=== PATIENT | male | born 1995 | race Two or more races ===

== ENCOUNTER 2016-11-01 16:18 | Emergency (ER) | payer SELFPAY ==
[~2016-11-01] VITALS: Ht 172.7 cm; Wt 81.6 kg
[2016-11-01 16:18] VITALS: BP 129/68
== END 2016-11-01 17:45 | disposition home or self-care (01) ==
LOC: ER 16:23
DX: H60.91 Unspecified otitis externa, right ear (principal); J02.8 Acute pharyngitis due to other specified organisms; J06.9 Acute upper respiratory infection, unspecified
CPT/HCPCS: A4606; Z7610

== ENCOUNTER 2017-10-12 18:24 | Emergency (ER) | payer MEDICAID ==
[~2017-10-12] VITALS: Ht 172.7 cm; Wt 90.7 kg
--- NOTE | 2017-10-12 19:19 | NUR ---
N/V/D X2 WKS, MIDABD PAIN, TOOK TYLENOL 2 TAB X5 HRS [employer] RECENT TRAVEL TO [facility] X3 DAYS AGO
--- NOTE | 2017-10-12 20:54 | NUR ---
STOOL SAMPLE COLLECTED
[2017-10-12] MEDS ORDERED: IV NS 0.9% 1,000 ML BAG IV ONE (21:00)
[2017-10-12] MEDS ORDERED: ONDANSETRON HCL/PF 4 MG/2 ML VIAL IVP ONE (21:00)
[2017-10-12] MEDS ORDERED: MORPHINE SULFATE INJ 2 MG/ML DISP.SYRIN IV ONE (21:00)
--- NOTE | 2017-10-12 21:05 | NUR ---
RAC #[id number] IV ACCESS. BLOOD SAMPLE COLLECTED SENT TO LAB
[2017-10-12] MEDS ORDERED: IOHEXOL-300 100 ML VIAL IV ONE (21:13)
[2017-10-12] MEDS ORDERED: IV NS 0.9% 250 ML IV ONE (21:13)
[2017-10-12 21:14] LABS: BASOPHILS % (AUTO) 0.3 % (0.0-2.0); EOSINOPHILS # (AUTO) 0.1 /CMM (0.0-0.7); EOSINOPHILS % (AUTO) 0.6 % (0.0-6.0); HEMATOCRIT 45 % (39-51); HEMOGLOBIN 15.4 g/dL (13.5-17.5); LYMPHOCYTES # (AUTO) 1.7 /CMM (0.8-4.8); LYMPHOCYTES % (AUTO) 16.8 % (20.0-44.0); MEAN CORPUSCULAR HEMOGLOBIN 25 PG (26.0-33.0); MEAN CORPUSCULAR HGB CONC 34 g/dl (31.0-36.0); MEAN CORPUSCULAR VOLUME 73 fL (80-96); MONOCYTES # (AUTO) 1.4 /CMM (0.1-1.30); MONOCYTES % (AUTO) 13.8 % (2.0-12.0); NEUTROPHILS # (AUTO) 6.8 /CMM (1.8-8.9); NEUTROPHILS % (AUTO) 68.5 % (43.0-81.0); PLATELET COUNT (AUTO) 441 /CMM (150-450); RDW COEFFICIENT OF VARIATION 14.6 (11.5-15.0); RED BLOOD CELL COUNT(AUTO) 6.24 MIL/uL (4.5-6.0)
[2017-10-12] MEDS ORDERED: ONDANSETRON HCL/PF 4 MG/2 ML VIAL ONE (21:18)
[2017-10-12] MEDS ORDERED: MORPHINE SULFATE INJ 4 MG/ML DISP.SYRIN ONE (21:19)
[2017-10-12 21:25] LABS: CALCIUM, SERUM 9.7 mg/dL (8.5-10.1); CREATININE 1.3 mg/dL (0.6-1.3); POTASSIUM 3.7 mmol/L (3.5-5.1)
[2017-10-12 21:27] LABS: INR 1.03 (0.87-1.13); PROTHROMBIN TIME 10.7 SECS (9.5-12.7)
[2017-10-12 21:36] LABS: ALBUMIN 4.5 g/dL (3.4-5.0); BILIRUBIN,DIRECT 0.1 mg/dL (0.0-0.2); BILIRUBIN,TOTAL 0.4 mg/dL (0.2-1.0)
[2017-10-12 22:15] LABS: NEUTROPHILS % (MANUAL) 70 (42-76)
[2017-10-12 22:16] LABS: LYMPHOCYTES % (MANUAL) 14 % (16-48); MONOCYTES % (MANUAL) 16 % (0-11.0)
[2017-10-12 22:46] VITALS: BP 123/80
--- NOTE | 2017-10-12 22:46 | NUR ---
Patient discharged to home in stable condition. Written and verbal after care instructions given. Patient verbalizes understanding of instruction.
--- NOTE | 2017-10-12 22:46 | NUR ---
IV removed. Catheter intact and site benign. Pressure and 4x4 applied to site. No bleeding noted.
== END 2017-10-12 22:48 | disposition home or self-care (01) ==
LOC: ER 18:39
DX: R19.7 Diarrhea, unspecified (principal); R10.84 Generalized abdominal pain; R11.2 Nausea with vomiting, unspecified
CPT/HCPCS: 36415; 80048-TC; 80076-TC; 83690-TC; 85025-TC; 85730-TC; 87045-TC; 89055; A4606; J2270; J2405; J7030; J7050; Q9967; Z7610

== ENCOUNTER 2018-06-30 23:46 | Emergency (ER) | payer MEDICAID, OTHER ==
[~2018-06-30] VITALS: Ht 172.7 cm; Wt 90.7 kg
[2018-07-01] VITALS: BP 123/72
[2018-07-01] MEDS ORDERED: HYDROCODONE/APAP 5/325MG 1 EACH TABLET PO ONE (03:30)
[2018-07-01] MEDS ORDERED: HYDROCODONE/APAP 5/325MG 1 EACH TABLET ONE (03:30)
[2018-07-01] MEDS ORDERED: PENICILLIN G BENZATHINE 2.4 MMU/4 ML ML IM ONE ×2 (03:30→03:31)
[2018-07-01] MEDS ORDERED: ONDANSETRON 4 MG TAB.RAPDIS ONE (03:30)
[2018-07-01] MEDS ORDERED: ONDANSETRON 4 MG TAB.RAPDIS SL ONE (03:30)
== END 2018-07-01 03:42 | disposition home or self-care (01) ==
LOC: ER 23:47
DX: J02.9 Acute pharyngitis, unspecified (principal); R51 Headache; Z60.2 Problems related to living alone
CPT/HCPCS: 96372; 99283; A4606; J0558; Q0162; Z7610

== ENCOUNTER 2023-08-28 15:30 | Emergency (ER) | payer OTHER ==
[~2023-08-28] VITALS: Ht 172.7 cm; Wt 78.5 kg
[2023-08-28] MEDS ORDERED: PROCHLORPERAZINE EDISYLATE 10 MG/2 ML VIAL IVP ONE (17:00)
[2023-08-28] MEDS ORDERED: KETOROLAC TROMETHAMINE 15 MG/ML VIAL IV ONE (17:00)
[2023-08-28] MEDS ORDERED: diphenhydrAMINE HCL 50 MG/ML VIAL IV ONE (17:00)
[2023-08-28] MEDS ORDERED: IV NS 0.9% 1,000 ML BAG IV ONE (17:00)
[2023-08-28] MEDS ORDERED: diphenhydrAMINE HCL 50 MG/ML VIAL ONE (17:26)
[2023-08-28] MEDS ORDERED: KETOROLAC TROMETHAMINE 15 MG/ML VIAL ONE (17:27)
[2023-08-28] MEDS ORDERED: PROCHLORPERAZINE EDISYLATE 10 MG/2 ML VIAL ONE (17:27)
[2023-08-28] MEDS ORDERED: IBUP-1957 PO (19:17)
[2023-08-28 20:15] VITALS: BP 124/71; TEMP 97.9; O2SAT 100
== END 2023-08-28 20:16 | disposition home or self-care (01) ==
LOC: ER 15:41
DX: R51.9 Headache, unspecified (principal); Z79.899 Other long term (current) drug therapy; Z60.2 Problems related to living alone
CPT/HCPCS: 99284; 96374; 96375; 96361; J0780; J1200; J7030; J1885

== ENCOUNTER 2023-12-30 10:44 | Emergency (ER) | payer OTHER ==
[~2023-12-30] VITALS: Ht 172.7 cm; Wt 90.7 kg
[~2023-12-30 10:44] MED LIST: IBUP-1957 PO
[2023-12-30] MEDS ORDERED: ACETAMINOPHEN ES 500 MG TABLET ONE (11:25)
[2023-12-30] MEDS: ACETAMINOPHEN ES 500 MG TABLET PO ONE (11:29)
[2023-12-30] MEDS ORDERED: METOCLOPRAMIDE HCL 10 MG/2 ML VIAL ONE (11:44)
[2023-12-30] MEDS ORDERED: diphenhydrAMINE HCL 50 MG/ML VIAL ONE (11:44)
[2023-12-30] MEDS ORDERED: dexaMETHasone SOD PHOSPHATE 1 ML ONE (11:44)
[2023-12-30 11:58] LABS: BASOPHILS # (AUTO) 0.1 K/uL (0.0-0.2); BASOPHILS % (AUTO) 0.5 % (0.0-2.0); EOSINOPHILS # (AUTO) 0.1 K/uL (0.0-0.7); EOSINOPHILS % (AUTO) 0.6 % (0.0-6.0); HEMATOCRIT 33 % (39-51); HEMOGLOBIN 10.7 g/dL (13.5-17.5); LYMPHOCYTES # (AUTO) 1.2 K/uL (0.8-4.8); LYMPHOCYTES % (AUTO) 9.8 % (20.0-44.0); MEAN CORPUSCULAR HEMOGLOBIN 23 PG (26.0-33.0); MEAN CORPUSCULAR HGB CONC 32 g/dl (31.0-36.0); MEAN CORPUSCULAR VOLUME 72 fL (80-96); MONOCYTES % (AUTO) 8.1 % (2.0-12.0); NEUTROPHILS # (AUTO) 9.6 K/uL (1.8-8.9); PLATELET COUNT (AUTO) 279 K/uL (150-450); RED BLOOD CELL COUNT(AUTO) 4.62 MIL/uL (4.5-6.0); RED CELL DISTRIBUTION WIDTH 16.3 % (11.5-15.0); WHITE BLOOD COUNT (AUTO) 11.8 K/uL (4.3-11.0)
[2023-12-30] MEDS: dexaMETHasone SOD PHOSPHATE 10 MG/ML VIAL IV ONE (12:09)
[2023-12-30] MEDS: IV NS 0.9% 1,000 ML BAG IV ONE (12:09)
[2023-12-30] MEDS: METOCLOPRAMIDE HCL 10 MG/2 ML VIAL IV ONE (12:09)
[2023-12-30] MEDS: diphenhydrAMINE HCL 50 MG/ML VIAL IV ONE (12:09)
[2023-12-30 12:11] LABS: CALCIUM, SERUM 9.2 mg/dL (8.5-10.1); CREATININE 0.6 mg/dL (0.6-1.3); POTASSIUM 3.7 mmol/L (3.5-5.1)
[2023-12-30 12:13] LABS: INR 1.14 (0.91-1.10); PARTIAL THROMBOPLASTIN TIME 35.1 SEC (24.3-34.3)
[2023-12-30 12:17] LABS: ALBUMIN 3.7 g/dL (3.4-5.0); BILIRUBIN,DIRECT 0.2 mg/dL (0.0-0.2); BILIRUBIN,TOTAL 0.7 mg/dL (0.2-1.0); TOTAL PROTEIN, SERUM 8.1 g/dL (6.4-8.2)
[2023-12-30] MEDS ORDERED: MORPHINE SULFATE INJ 4 MG/ML DISP.SYRIN ONE ×2 (13:19→19:00)
[2023-12-30] MEDS: MORPHINE SULFATE INJ 2 MG/ML DISP.SYRIN IV ONE ×2 (13:21→19:01)
[2023-12-30] MEDS ORDERED: ONDANSETRON HCL/PF 4 MG/2 ML VIAL ONE (22:10)
[2023-12-30] MEDS: ONDANSETRON HCL/PF - ER 4 MG/2 ML VIAL IV ONE (22:13)
[2023-12-31] MEDS ORDERED: ONDANSETRON HCL/PF 4 MG/2 ML VIAL ONE ×2 (01:31→05:59)
[2023-12-31] MEDS ORDERED: MORPHINE SULFATE INJ 4 MG/ML DISP.SYRIN ONE (01:31)
[2023-12-31] MEDS: MORPHINE SULFATE INJ 2 MG/ML DISP.SYRIN IV ONE (01:35)
[2023-12-31] MEDS: ONDANSETRON HCL/PF 4 MG/2 ML VIAL IV ONE ×2 (01:35→06:01)
[2023-12-31 11:39] VITALS: BP 125/71; TEMP 98.7; O2SAT 99
== END 2023-12-31 11:39 | disposition home or self-care (01) ==
LOC: ER 10:44
DX: D35.2 Benign neoplasm of pituitary gland (principal); R51.9 Headache, unspecified; J02.9 Acute pharyngitis, unspecified; R09.81 Nasal congestion; R11.2 Nausea with vomiting, unspecified; Z60.2 Problems related to living alone; Z20.822 Contact with and (suspected) exposure to COVID-19
CPT/HCPCS: 99285; 96374; 96375; 70450; 71045; 87426; 93005; 96376 ×2; 85025; 80048; 80076; 36415; 85730; J1100; J1200; J2270 ×3; J2765; J2405 ×4; J7030 ×3

== ENCOUNTER → 2025-05-15 | Emergency (ER) | payer OTHER ==
[~2025-05-15] VITALS: Ht 175.3 cm; Wt 74.8 kg
[~2025-05-15] MED LIST changes: +ONDA4TAB11 PO; +ONDANSETRON 4 MG TAB.RAPDIS ONE
[2025-05-15 03:22] VITALS: TEMP 98
[2025-05-15] MEDS: ONDANSETRON 4 MG TAB.RAPDIS SL ONE (03:57)
[2025-05-15 05:00] VITALS: BP 132/71; O2SAT 99
== END | disposition home or self-care (01) ==
LOC: ER 03:13
DX: F12.90 Cannabis use, unspecified, uncomplicated (principal); R11.0 Nausea; R53.81 Other malaise; E86.0 Dehydration; Z85.841 Personal history of malignant neoplasm of brain; Z60.2 Problems related to living alone
CPT/HCPCS: 99283; 98960; Q0162